=== PATIENT | male | born 1955 | race Caucasian/White ===

== ENCOUNTER 2016-10-20 07:04 | Outpatient (CLI) ==
[2016-10-20 07:18] LABS: HEMOGLOBIN 14.2 g/dl (14.0-18.0); MEAN CORPUSCULAR HEMOGLOBIN 31.8 pg (27.0-31.0); MEAN CORPUSCULAR HGB CONC 34.6 (31.8-35.4); MEAN CORPUSCULAR VOLUME 91.7 fl (80.0-94.0); RED BLOOD COUNT 4.47 10^6/ul (4.70-6.10); WHITE BLOOD COUNT 3.87 K/ul (4.2-10.2)
[2016-10-20 07:37] LABS: ALBUMIN 3.4 g/dL (3.4-5.0); BILIRUBIN,DIRECT 0.24 mg/dL (0.00-0.30); BILIRUBIN,TOTAL 0.61 mg/dL (0.00-1.20); TOTAL PROTEIN 7.3 g/dL (5.8-8.1)
[2016-10-21 08:40] LABS: TESTOSTERONE 358 ng/dL (348-1197)
== END 2016-10-20 07:05 | disposition home or self-care (01) ==
LOC: LAB 07:04
PROVIDERS: ATTEND Physician Assistant Medical
DX: E29.1 Testicular hypofunction (principal)
CPT/HCPCS: 36415; 80076; 84403; 85027

== ENCOUNTER 2017-02-16 07:47 | Outpatient (CLI) ==
[2017-02-16 08:01] LABS: HEMATOCRIT 40.8 % (42.0-52.0); HEMOGLOBIN 14.1 g/dl (14.0-18.0); MEAN CORPUSCULAR HEMOGLOBIN 31.5 pg (27.0-31.0); MEAN CORPUSCULAR HGB CONC 34.6 (31.8-35.4); MEAN CORPUSCULAR VOLUME 91.3 fl (80.0-94.0); RED BLOOD COUNT 4.47 10^6/ul (4.70-6.10); WHITE BLOOD COUNT 4.13 K/ul (4.2-10.2)
[2017-02-16 08:21] LABS: ALBUMIN 3.1 g/dL (3.4-5.0); BILIRUBIN,DIRECT 0.27 mg/dL (0.00-0.30); BILIRUBIN,TOTAL 0.62 mg/dL (0.00-1.20); TOTAL PROTEIN 7.4 g/dL (5.8-8.1)
[2017-02-17 07:15] LABS: TESTOSTERONE 923 ng/dL (264-916)
== END 2017-02-16 07:48 | disposition home or self-care (01) ==
LOC: LAB 07:47
PROVIDERS: ATTEND Physician Assistant Medical
DX: E29.1 Testicular hypofunction (principal)
CPT/HCPCS: 36415; 80076; 84403; 85027

== ENCOUNTER 2017-09-07 06:57 | Outpatient (CLI) | END 2017-09-07 06:58 | disposition home or self-care (01) | LOC: LAB 06:57 | PROVIDERS: ATTEND Physician Assistant Medical | DX: E29.1 Testicular hypofunction (principal) | CPT/HCPCS: 36415; 80076; 84403; 85027 ==

== ENCOUNTER 2018-02-08 07:25 | Outpatient (CLI) | END 2018-02-08 07:26 | disposition home or self-care (01) | LOC: LAB 07:25 | PROVIDERS: ATTEND Physician Assistant Medical | DX: E29.1 Testicular hypofunction (principal) | CPT/HCPCS: 36415; 80076; 82670; 84403; 85027 ==

== ENCOUNTER 2018-08-26 09:04 | Outpatient (CLI) | END 2018-08-26 09:05 | disposition home or self-care (01) | LOC: LAB 09:04 | PROVIDERS: ATTEND Physician Assistant Medical | DX: E78.5 Hyperlipidemia, unspecified (principal); E16.2 Hypoglycemia, unspecified; E29.1 Testicular hypofunction; Z79.899 Other long term (current) drug therapy | CPT/HCPCS: 36415; 80053; 80061; 82248; 82670; 83036; 84403; 84439; 84443; 85027 ==